=== PATIENT | female | born 1995 | race Caucasian/White ===

== ENCOUNTER 2020-08-26 06:43 | Emergency (ER) | payer SELFPAY ==
--- NOTE | 2020-08-26 06:58 | EDM.PDOC ---
ED HPI GENERAL MEDICAL PROBLEM - General Chief Complaint: Flank Pain Stated Complaint: KIDNEY PAIN Time Seen by Provider: 08/26/20 06:55 Source of Information: Reports: Patient History Limitations: Reports: No Limitations - History of Present Illness INITIAL COMMENTS - FREE TEXT/NARRATIVE: 25-year-old female past medical history kidney stones, UTIs presents for "kidney pain". She states that she had bilateral lower quadrant abdominal pain with a little bit of radiation to her back the last several days. She denies any burning sensation with urination, hematuria, vaginal discharge or bleeding. No history of abdominal surgeries and denies possibility of . bilateral flank pain Pain Score (Numeric/FACES): 8 - Related Data Allergies Allergy/AdvReac Type Severity Reaction Status Date / Time tramadol Allergy Anaphylactic Verified 08/26/20 07:07 Shock Home Meds: Home Meds Ibuprofen [Motrin] 600 mg PO Q6H PRN #20 tab 08/26/20 [Rx] oxyCODONE HCl/Acetaminophen [Percocet 5-325 mg Tablet] 1 each PO Q4H PRN #12 tablet 08/26/20 [Rx] ED ROS GENERAL - Review of Systems Review Of Systems: Comprehensive ROS is negative, except as noted in HPI. ED EXAM, GENERAL - Physical Exam Exam: See Below Exam Limited By: No Limitations General Appearance: Alert, WD/WN, No Apparent Distress Throat/Mouth: Normal Voice, No Airway Compromise Head: Atraumatic, Normocephalic Respiratory/Chest: No Respiratory Distress, Lungs Clear, Normal Breath Sounds, No Accessory Muscle Use Cardiovascular: Normal Peripheral Pulses GI/Abdominal: Soft, Other (TTP with voluntary guarding b/l lower abdomen R>L) Extremities: Normal Inspection Neurological: Alert Psychiatric: Normal Affect, Normal Mood Skin Exam: Warm, Dry, Intact, Normal Color Course - Vital Signs Last Recorded V/S: Last Vital Signs Temp 98.1 F 08/26/20 07:08 Pulse 62 08/26/20 09:09 Resp 18 08/26/20 09:09 BP 104/65 08/26/20 09:09 Pulse Ox 100 08/26/20 09:09 - Orders/Labs/Meds Orders: Active Orders 24 hr Category Date Time Status Sodium Chloride 0.9% [Saline Flush] Med 08/26/20 07:07 Active 10 ml FLUSH ASDIRECTED PRN Sodium Chloride 0.9% [Saline Flush] Med 08/26/20 07:07 Active 2.5 ml FLUSH ASDIRECTED PRN Saline Lock Insert [OM.PC] Stat Oth 08/26/20 07:07 Ordered Medication Orders Sodium Chloride (Saline Flush) 10 ml FLUSH ASDIRECTED PRN PRN Reason: Keep Vein Open Last Admin: 08/26/20 07:29 Dose: 10 ml Documented by: ROBBY Sodium Chloride (Saline Flush) 2.5 ml FLUSH ASDIRECTED PRN PRN Reason: Keep Vein Open Last Admin: 08/26/20 07:28 Dose: 2.5 ml Documented by: ROBBY Labs: Laboratory Tests 08/26/20 08/26/20 08/26/20 Range/Units 07:13 07:13 07:26 WBC 8.20 (4.0-11.0) K/uL RBC 4.55 (4.30-5.90) M/uL Hgb 14.2 (12.0-16.0) g/dL Hct 43.5 (36.0-46.0) % MCV 95.6 (80.0-98.0) fL MCH 31.2 (27.0-32.0) pg MCHC 32.6 (31.0-37.0) g/dL RDW Std Deviation 43.2 (28.0-62.0) fl RDW Coeff of Van 12 (11.0-15.0) % Plt Count 267 (150-400) K/uL MPV 10.60 (7.40-12.00) fL Neut % (Auto) 65.9 (48.0-80.0) % Lymph % (Auto) 21.6 (16.0-40.0) % Prentiss % (Auto) 10.4 (0.0-15.0) % Eos % (Auto) 2.0 (0.0-7.0) % Baso % (Auto) 0.1 (0.0-1.5) % Neut # (Auto) 5.4 (1.4-5.7) K/uL Lymph # (Auto) 1.8 (0.6-2.4) K/uL Prentiss # (Auto) 0.9 H (0.0-0.8) K/uL Eos # (Auto) 0.2 (0.0-0.7) K/uL Baso # (Auto) 0.0 (0.0-0.1) K/uL Nucleated RBC % 0.0 /100WBC Nucleated RBCs # 0 K/uL Sodium (136-145) mmol/L Potassium (3.5-5.1) mmol/L Chloride (98-107) mmol/L Carbon Dioxide (21.0-32.0) mmol/L BUN (7.0-18.0) mg/dL Creatinine (0.6-1.0) mg/dL Est Cr Clr Drug Dosing mL/min Estimated GFR (MDRD) ml/min Glucose (74-106) mg/dL Calcium (8.5-10.1) mg/dL Total Bilirubin (0.2-1.0) mg/dL AST (15-37) IU/L ALT (14-63) IU/L Alkaline Phosphatase (46-116) U/L Total Protein (6.4-8.2) g/dL Albumin (3.4-5.0) g/dL Globulin (2.6-4.0) g/dL Albumin/Globulin Ratio (0.9-1.6) Urine Color YELLOW Urine Appearance CLOUDY Urine pH 6.0 (5.0-8.0) Ur Specific [employer] >= 1.030 (1.001-1.035) Urine Protein NEGATIVE (NEGATIVE) mg/dL Urine Glucose (UA) NEGATIVE (NEGATIVE) mg/dL Urine Ketones NEGATIVE (NEGATIVE) mg/dL Urine Occult Blood NEGATIVE (NEGATIVE) Urine Nitrite NEGATIVE (NEGATIVE) Urine Bilirubin NEGATIVE (NEGATIVE) Urine Urobilinogen 0.2 (<2.0) EU/dL Ur Leukocyte Esterase NEGATIVE (NEGATIVE) Urine HCG, Qual NEGATIVE (NEGATIVE) 08/26/20 Range/Units 07:26 WBC (4.0-11.0) K/uL RBC (4.30-5.90) M/uL Hgb (12.0-16.0) g/dL Hct (36.0-46.0) % MCV (80.0-98.0) fL MCH (27.0-32.0) pg MCHC (31.0-37.0) g/dL RDW Std Deviation (28.0-62.0) fl RDW Coeff of Van (11.0-15.0) % Plt Count (150-400) K/uL MPV (7.40-12.00) fL Neut % (Auto) (48.0-80.0) % Lymph % (Auto) (16.0-40.0) % Prentiss % (Auto) (0.0-15.0) % Eos % (Auto) (0.0-7.0) % Baso % (Auto) (0.0-1.5) % Neut # (Auto) (1.4-5.7) K/uL Lymph # (Auto) (0.6-2.4) K/uL Prentiss # (Auto) (0.0-0.8) K/uL Eos # (Auto) (0.0-0.7) K/uL Baso # (Auto) (0.0-0.1) K/uL Nucleated RBC % /100WBC Nucleated RBCs # K/uL Sodium 141 (136-145) mmol/L Potassium 3.6 (3.5-5.1) mmol/L Chloride 106 (98-107) mmol/L Carbon Dioxide 24.9 (21.0-32.0) mmol/L BUN 8 (7.0-18.0) mg/dL Creatinine 0.8 (0.6-1.0) mg/dL Est Cr Clr Drug Dosing 109.38 mL/min Estimated GFR (MDRD) > 60.0 ml/min Glucose 88 (74-106) mg/dL Calcium 8.8 (8.5-10.1) mg/dL Total Bilirubin 0.3 (0.2-1.0) mg/dL AST 8 L (15-37) IU/L ALT 14 (14-63) IU/L Alkaline Phosphatase 42 L (46-116) U/L Total Protein 7.4 (6.4-8.2) g/dL Albumin 4.2 (3.4-5.0) g/dL Globulin 3.2 (2.6-4.0) g/dL Albumin/Globulin Ratio 1.3 (0.9-1.6) Urine Color Urine Appearance Urine pH (5.0-8.0) Ur Specific [employer] (1.001-1.035) Urine Protein (NEGATIVE) mg/dL Urine Glucose (UA) (NEGATIVE) mg/dL Urine Ketones (NEGATIVE) mg/dL Urine Occult Blood (NEGATIVE) Urine Nitrite (NEGATIVE) Urine Bilirubin (NEGATIVE) Urine Urobilinogen (<2.0) EU/dL Ur Leukocyte Esterase (NEGATIVE) Urine HCG, Qual (NEGATIVE) Meds: Medications Generic Name Dose Route Start Last Admin Trade Name Shakira PRN Reason Stop Dose Admin Sodium Chloride 10 ml 08/26/20 07:07 08/26/20 07:29 Saline Flush FLUSH 10 ml ASDIRECTED PRN Administration Keep Vein Open Sodium Chloride 2.5 ml 08/26/20 07:07 08/26/20 07:28 Saline Flush FLUSH 2.5 ml ASDIRECTED PRN Administration Keep Vein Open Discontinued Medications Generic Name Dose Route Start Last Admin Trade Name Freq PRN Reason Stop Dose Admin Iopamidol 100 ml 08/26/20 08:33 08/26/20 09:25 Isovue Multipack-370 (76%) IVPUSH 08/26/20 08:34 100 ml ONETIME STA Administration Morphine Sulfate 4 mg 08/26/20 07:07 08/26/20 07:29 Morphine IVPUSH 08/26/20 07:08 4 mg ONETIME ONE Administration Morphine Sulfate 4 mg 08/26/20 09:37 08/26/20 09:41 Morphine IVPUSH 08/26/20 09:38 4 mg ONETIME ONE Administration Ondansetron HCl 4 mg 08/26/20 07:07 08/26/20 07:29 Zofran IVPUSH 08/26/20 07:08 4 mg ONETIME ONE Administration - Re-Assessments/Exams Free Text/Narrative Re-Assessment/Exam: 08/26/20 07:16 Will get basic labs, UA, Upreg, and CT A/P to r/o appendicitis vs UTI vs pyelo vs renal stone 08/26/20 09:27 Large ovarian cyst on CT imaging. Will get ultrasound to further characterize. Spoke with patient about results and discussed importance of establishing care with a electron beam welding machine operator. 08/26/20 11:08 Ultrasound does not reveal evidence of ovarian torsion. Will discharge with analgesia and recommendations to follow-up with electron beam welding machine operator. Return precautions were discussed at length. Departure - Departure Time of Disposition: 11:08 Disposition: Home, Self-Care 01 Condition: Good Clinical Impression: Ovarian cyst Qualifiers: Laterality: right Qualified Code(s): N83.201 - Unspecified ovarian cyst, right side - Discharge Information Prescriptions: Ibuprofen [Motrin] 600 mg PO Q6H PRN #20 tab PRN Reason: Pain oxyCODONE HCl/Acetaminophen [Percocet 5-325 mg Tablet] 1 each PO Q4H PRN #12 tablet PRN Reason: Pain Instructions: Ovarian Cyst, [id number] Referrals: PCP,None [Primary Care Provider] - Forms: ED Department Discharge Additional Instructions: Your imaging was remarkable for a large ovarian cyst. There is no evidence of infection. You were getting good blood flow to your ovary. Often these cysts resolve on their own, but you should follow-up with an [employer]. The radiologist reading your imaging recommends a repeat ultrasound in 6 to 8 weeks. This can be ordered by your SLURRY MIXER. Information for [employer] is provided below. If you are feeling like you are going to pass out or if the pain suddenly changes, you are encouraged to return to the emergency department for reassessment. [facility]: [facility] [address] [place] [id number] [facility] [address] [place] [id number] The following information is given to patients seen in the emergency department who are being discharged to home. This information is to outline your options for follow-up care. We provide all patients seen in our emergency department with a follow-up referral. The need for follow-up, as well as the timing and circumstances, are variable depending upon the specifics of your emergency department visit. If you don't have a primary care physician on staff, we will provide you with a referral. We always advise you to contact your personal physician following an emergency department visit to inform them of the circumstance of the visit and for follow-up with them and/or the need for any referrals to a consulting specialist. The emergency department will also refer you to a specialist when appropriate. This referral assures that you have the opportunity for follow-up care with a specialist. All of these measure are taken in an effort to provide you with optimal care, which includes your follow-up. Under all circumstances we always encourage you to contact your private physician who remains a resource for coordinating your care. When calling for follow-up care, please make the office aware that this follow-up is from your recent emergency room visit. If for any reason you are refused follow-up, please contact the [facility] Emergency Department at and asked to speak to the emergency department charge nurse. Please follow up with your primary care physician. If you do not have a primary care physician, see below: [facility] [address], [place] [id number] My [facility] [address] [place], [place] [id number] [facility] [address] [place] [address] Sepsis Event Note (ED) - Focused Exam Vital Signs: Vital Signs Temp Pulse Resp BP Pulse Ox 08/26/20 09:09 62 18 104/65 100 08/26/20 08:09 65 18 110/60 100 08/26/20 07:08 98.1 F 92 18 123/63 98 - My Orders Last 24 Hours: My Active Orders 08/26/20 07:07 Sodium Chloride 0.9% [Saline Flush] 10 ml FLUSH ASDIRECTED PRN Sodium Chloride 0.9% [Saline Flush] 2.5 ml FLUSH ASDIRECTED PRN Saline Lock Insert [OM.PC] Stat - Assessment/Plan Last 24 Hours: My Active Orders 08/26/20 07:07 Sodium Chloride 0.9% [Saline Flush] 10 ml FLUSH ASDIRECTED PRN Sodium Chloride 0.9% [Saline Flush] 2.5 ml FLUSH ASDIRECTED PRN Saline Lock Insert [OM.PC] Stat
[2020-08-26] MEDS ORDERED: Sodium Chloride 0.9% 2.5 ML Syringe FLUSH PRN (07:07)
[2020-08-26] MEDS ORDERED: Ondansetron 4 MG/2 ML SDV IVPUSH ONE (07:07)
[2020-08-26] MEDS ORDERED: Sodium Chloride 0.9% 10 ML Syringe FLUSH PRN (07:07)
[2020-08-26] MEDS ORDERED: Morphine 4 MG/ML Syringe IVPUSH ONE ×2 (07:07→09:37)
[2020-08-26 08:18] LABS: BLOOD UREA NITROGEN,BUN 8 mg/dL (7.0-18.0); CARBON DIOXIDE,CO2 24.9 mmol/L (21.0-32.0); CHLORIDE,CL 106 mmol/L (98-107); GLUCOSE RANDOM 88 mg/dL (74-106); POTASSIUM,K 3.6 mmol/L (3.5-5.1); SODIUM,NA 141 mmol/L (136-145)
[2020-08-26] MEDS ORDERED: Iopamidol 755 MG/ML 500 ML Multipack Bottle IVPUSH STA (08:33)
--- NOTE | 2020-08-26 09:20 | CT ---
HISTORY: Lower abdominal pain. TECHNIQUE: Intravenous contrast enhanced CT of the abdomen and pelvis. 100 mL of Isovue-370 intravenous contrast administered. COMPARISON: No prior. FINDINGS: There is no focal liver parenchymal abnormality. No biliary ductal dilatation. Gallbladder does not appear overly distended. Spleen size within normal limits. Adrenal glands are normal. No focal pancreatic abnormality. Symmetric nephrograms. No renal mass or hydronephrosis. No obstructive urinary calculus. Urinary bladder does not appear overly distended. - No small bowel obstruction. No appendicitis. No diverticulitis. - There is an approximately 4.3 cm cystic right adnexal structure which may reflect a ovarian cyst. This is seen on image #130 of series 201. Right ovary would be more optimally evaluated with ultrasound. The left ovary appears grossly unremarkable. Mildly prominent periuterine vasculature. - No abdominal aortic aneurysm. Small retroperitoneal lymph nodes are not technically enlarged by imaging criteria. - No consolidation within the lung bases nor pleural effusion. - No acute bony abnormality. IMPRESSION: 1. 4.3 cm right adnexal cystic structure which could reflect an ovarian cyst. The right ovary would more optimally evaluated with ultrasound. 2. No appendicitis. 3. No hydronephrosis or obstructive calculus. Please note that all CT scans at this facility use dose modulation, iterative reconstruction, and/or weight-based dosing when appropriate to reduce radiation dose to as low as reasonably achievable. Dictated by Mt Martinez MD @ Aug 26 2020 9:14AM Signed by Dr. Mt Martinez @ Aug 26 2020 9:20AM
--- NOTE | 2020-08-26 10:50 | US ---
HISTORY: Right ovarian cyst seen on recent CT. TECHNIQUE: Transvaginal pelvic ultrasound. COMPARISON: CT 08/26/2020. FINDINGS: Uterus measures 7.4 x 6.2 x 4.1 cm in size. Endometrial stripe thickness is 10 mm which is within normal limits. No uterine mass. - Right ovary is enlarged measuring 6.3 x 6.4 x 4.3 cm in size. There is a complex cystic lesion within the right ovary which measures approximately 4.6 x 3.8 x 4.6 cm in size. This may reflect a hemorrhagic cyst. Blood flow is detected within the right ovary without findings of torsion. - Left ovary measures 3 x 1.8 x 3.3 cm in size. There are small follicles within the left ovary. Blood flow is detected within left ovary without findings of torsion. IMPRESSION: Complex 4.6 cm lesion within the right ovary which may reflect a hemorrhagic cyst. Blood flow is detected within the right ovary without findings of torsion. Consider a follow-up pelvic ultrasound in 6-8 weeks or 1-2 menstrual cycles to confirm appropriate resolution of this finding. Dictated by Mt Martinez MD @ Aug 26 2020 10:49AM Signed by Dr. Mt Martinez @ Aug 26 2020 10:49AM
== END 2020-08-26 11:40 | disposition home or self-care (01) ==
LOC: MW.ED 06:43
DX: N83.201 Unspecified ovarian cyst, right side (principal); Z88.5 Allergy status to narcotic agent
CPT/HCPCS: 36415; 74177; 76856; 80053; 81003; 81025; 85025; 96374; 96375; 96376; 99284; J2270; J2405; Q9967

== ENCOUNTER 2020-11-17 09:15 | Emergency (ER) | payer SELFPAY ==
[2020-11-17] MEDS ORDERED: Sodium Chloride 0.9% 2.5 ML Syringe FLUSH PRN (09:41)
[2020-11-17] MEDS ORDERED: Sodium Chloride 0.9% 10 ML Syringe FLUSH PRN (09:41)
[2020-11-17] MEDS ORDERED: Morphine 4 MG/ML Syringe IVPUSH ONE (09:43)
[2020-11-17] MEDS ORDERED: Ondansetron 4 MG/2 ML SDV IVPUSH ONE (09:43)
--- NOTE | 2020-11-17 09:45 | EDM.PDOC ---
ED HPI GENERAL MEDICAL PROBLEM - General Chief Complaint: Genitourinary Problem Stated Complaint: ABDOMINAL PAIN Time Seen by Provider: 11/17/20 09:22 - History of Present Illness INITIAL COMMENTS - FREE TEXT/NARRATIVE: 25-year-old female with minimal past history presenting with inferior right lower quadrant abdominal pain sharp and achy currently 8 out of 10 started last night. Some significant nausea associated with but no vomiting no fever no vaginal bleeding or discharge. Patient's last menstrual cycle was November 11 it was especially painful but otherwise normal. Patient was seen here in August for similar symptoms diagnosed with a large right-sided ovarian cyst at that time has not been able to follow-up with gynecology as yet. No exacerbating or alleviating factors the pain does not radiate no associated symptoms. Right Lower Abdomen Pain Score (Numeric/FACES): 8 - Related Data Allergies Allergy/AdvReac Type Severity Reaction Status Date / Time tramadol Allergy Anaphylactic Verified 11/17/20 09:29 Shock Home Meds: Home Meds . [No Known Home Meds] 11/17/20 [History] Past Medical History - Past Health History Medical/Surgical History: Denies Medical/Surgical History Genitourinary History: Reports: UTI, Recurrent Other Genitourinary History: ovarian cyst - Infectious Disease History Infectious Disease History: Reports: Chicken Pox - Past Surgical History HEENT Surgical History: Reports: Tonsillectomy Social & Family History - Family History Family Medical History: No Pertinent Family History - Tobacco Use Tobacco Use Status *Q: Never Tobacco User - Caffeine Use Caffeine Use: Reports: None - Recreational Drug Use Recreational Drug Use: No ED ROS GENERAL - Review of Systems Review Of Systems: See Below Free Text/Narrative/Comment: General: No fever. Skin: No rash. Eyes: No vision problems. ENT: No sore throat. Neck: No neck stiffness. Respiratory: No shortness of breath. Cardiac: No chest pain. Gastrointestinal: Per HPI Urinary: No dysuria. Musculoskeletal: No myalgias/arthralgias. Neurologic: No headache. ED EXAM, GENERAL - Physical Exam Exam: See Below Free Text/Narrative:: General Appearance: No acute distress, appears comfortable Skin: No rash HEENT: Normocephalic/atraumatic, sclera anicteric, mucous membranes moist Neck: Normal range of motion Chest and Lungs: Bilateral breath sounds, clear to auscultation Cardiovascular: Regular rate and rhythm, no murmur Abdomen: Soft, minimal right lower quadrant tenderness no guarding or rebound Back: Normal Musculoskeletal: No edema or tenderness Neurologic: Awake, alert, no obvious deficits, moving all extremities Psychiatric: Appropriate, cooperative Course - Vital Signs Last Recorded V/S: Last Vital Signs Temp 96.3 F L 11/17/20 09:29 Pulse 60 11/17/20 12:41 Resp 16 11/17/20 12:41 BP 97/60 11/17/20 12:41 Pulse Ox 97 11/17/20 12:41 - Orders/Labs/Meds Orders: Active Orders 24 hr Category Date Time Status Sodium Chloride 0.9% [Saline Flush] Med 11/17/20 09:41 Active 10 ml FLUSH ASDIRECTED PRN Sodium Chloride 0.9% [Saline Flush] Med 11/17/20 09:41 Active 2.5 ml FLUSH ASDIRECTED PRN Saline Lock Insert [OM.PC] Stat Oth 11/17/20 09:42 Ordered Medication Orders Sodium Chloride (Sodium Chloride 0.9% 10 Ml Syringe) 10 ml FLUSH ASDIRECTED PRN PRN Reason: Keep Vein Open Last Admin: 11/17/20 09:50 Dose: 10 ml Documented by: MAIDA Sodium Chloride (Sodium Chloride 0.9% 2.5 Ml Syringe) 2.5 ml FLUSH ASDIRECTED PRN PRN Reason: Keep Vein Open Last Admin: 11/17/20 09:50 Dose: 2.5 ml Documented by: MAIDA Labs: Laboratory Tests 11/17/20 11/17/20 11/17/20 Range/Units 09:27 09:48 09:48 WBC 4.96 (4.0-11.0) K/uL RBC 4.18 L (4.30-5.90) M/uL Hgb 13.5 (12.0-16.0) g/dL Hct 40.4 (36.0-46.0) % MCV 96.7 (80.0-98.0) fL MCH 32.3 H (27.0-32.0) pg MCHC 33.4 (31.0-37.0) g/dL RDW Std Deviation 44.0 (28.0-62.0) fl RDW Coeff of Van 13 (11.0-15.0) % Plt Count 269 (150-400) K/uL MPV 10.20 (7.40-12.00) fL Neut % (Auto) 50.2 (48.0-80.0) % Lymph % (Auto) 34.1 (16.0-40.0) % [place] % (Auto) 13.7 (0.0-15.0) % Eos % (Auto) 1.8 (0.0-7.0) % Baso % (Auto) 0.2 (0.0-1.5) % Neut # (Auto) 2.5 (1.4-5.7) K/uL Lymph # (Auto) 1.7 (0.6-2.4) K/uL [place] # (Auto) 0.7 (0.0-0.8) K/uL Eos # (Auto) 0.1 (0.0-0.7) K/uL Baso # (Auto) 0.0 (0.0-0.1) K/uL Nucleated RBC % 0.0 /100WBC Nucleated RBCs # 0 K/uL Sodium 141 (136-145) mmol/L Potassium 3.9 (3.5-5.1) mmol/L Chloride 103 (98-107) mmol/L Carbon Dioxide 26.0 (21.0-32.0) mmol/L BUN 8 (7.0-18.0) mg/dL Creatinine 0.7 (0.6-1.0) mg/dL Est Cr Clr Drug Dosing 120.51 mL/min Estimated GFR (MDRD) > 60.0 ml/min Glucose 86 (74-106) mg/dL Calcium 8.2 L (8.5-10.1) mg/dL Total Bilirubin 0.4 (0.2-1.0) mg/dL AST 12 L (15-37) IU/L ALT 16 (14-63) IU/L Alkaline Phosphatase 71 (46-116) U/L Total Protein 7.1 (6.4-8.2) g/dL Albumin 3.9 (3.4-5.0) g/dL Globulin 3.2 (2.6-4.0) g/dL Albumin/Globulin Ratio 1.2 (0.9-1.6) Urine HCG, Qual NEGATIVE (NEGATIVE) Meds: Medications Generic Name Dose Route Start Last Admin Trade Name Freq PRN Reason Stop Dose Admin Sodium Chloride 10 ml 11/17/20 09:41 11/17/20 09:50 Sodium Chloride 0.9% 10 Ml Syringe FLUSH 10 ml ASDIRECTED PRN Administration Keep Vein Open Sodium Chloride 2.5 ml 11/17/20 09:41 11/17/20 09:50 Sodium Chloride 0.9% 2.5 Ml Syringe FLUSH 2.5 ml ASDIRECTED PRN Administration Keep Vein Open Discontinued Medications Generic Name Dose Route Start Last Admin Trade Name Rubinq PRN Reason Stop Dose Admin Morphine Sulfate 4 mg 11/17/20 09:43 11/17/20 09:50 Morphine 4 Mg/Ml Syringe IVPUSH 11/17/20 09:44 4 mg ONETIME ONE Administration Morphine Sulfate 2 mg 11/17/20 12:28 11/17/20 12:40 Morphine 2 Mg/Ml Syringe IVPUSH 11/17/20 12:29 2 mg ONETIME ONE Administration Ondansetron HCl 4 mg 11/17/20 09:43 11/17/20 09:50 Ondansetron 4 Mg/2 Ml Sdv IVPUSH 11/17/20 09:44 4 mg ONETIME ONE Administration Departure - Departure Time of Disposition: 13:25 Disposition: Home, Self-Care 01 Condition: Good Clinical Impression: Constipation - Discharge Information *PRESCRIPTION DRUG MONITORING PROGRAM REVIEWED*: Not Applicable *COPY OF PRESCRIPTION DRUG MONITORING REPORT IN PATIENT SRAVAN: Not Applicable Instructions: Constipation, Adult Forms: ED Department Discharge Additional Instructions: I recommend that you try MiraLAX or its generic equivalent to help with your constipation. Please start with 1 capful once a day as directed on the bottle. You can increase this by one half capful each day until you have a bowel movement. If you develop mild to moderate pain I encourage you to take ibuprofen or Advil you can take Tylenol as well. If you develop severe pain fever or vomiting please return to the ER. Please follow-up with your primary care doctor. If you do not have a primary care doctor you can be seen one of the primary care clinics listed below. [facility] - Primary Care [address] [place] [address] [id number] [address] [place] [address] The following information is given to patients seen in the emergency department who are being discharged to home. This information is to outline your options for follow-up care. We provide all patients seen in our emergency department with a follow-up referral. The need for follow-up, as well as the timing and circumstances, are variable depending upon the specifics of your emergency department visit. If you don't have a primary care physician on staff, we will provide you with a referral. We always advise you to contact your personal physician following an emergency department visit to inform them of the circumstance of the visit and for follow-up with them and/or the need for any referrals to a consulting specialist. The emergency department will also refer you to a specialist when appropriate. This referral assures that you have the opportunity for follow-up care with a specialist. All of these measure are taken in an effort to provide you with optimal care, which includes your follow-up. Under all circumstances we always encourage you to contact your private physician who remains a resource for coordinating your care. When calling for follow-up care, please make the office aware that this follow-up is from your recent emergency room visit. If for any reason you are refused follow-up, please contact the [facility] Emergency Department at and asked to speak to the emergency department charge nurse. Sepsis Event Note (ED) - Evaluation Sepsis Screening Result: No Definite Risk - Focused Exam Vital Signs: Vital Signs Temp Pulse Resp BP Pulse Ox 11/17/20 12:41 60 16 97/60 97 11/17/20 10:21 65 14 106/61 97 11/17/20 09:29 96.3 F L 95 18 108/58 L 97 - My Orders Last 24 Hours: My Active Orders 11/17/20 09:41 Sodium Chloride 0.9% [Saline Flush] 10 ml FLUSH ASDIRECTED PRN Sodium Chloride 0.9% [Saline Flush] 2.5 ml FLUSH ASDIRECTED PRN 11/17/20 09:42 Saline Lock Insert [OM.PC] Stat - Assessment/Plan Last 24 Hours: My Active Orders 11/17/20 09:41 Sodium Chloride 0.9% [Saline Flush] 10 ml FLUSH ASDIRECTED PRN Sodium Chloride 0.9% [Saline Flush] 2.5 ml FLUSH ASDIRECTED PRN 11/17/20 09:42 Saline Lock Insert [OM.PC] Stat Assessment:: 25-year-old female presenting with signs and symptoms that are most consistent with ovarian cyst related pain. Torsion must be excluded and pelvic ultrasound ordered. Appendicitis considered I think it is much less likely but if pelvic ultrasound were normal white blood cell count was elevated could consider CT scan at that time. No dysuria hematuria to suggest UTI. Given potential for emergent surgery if torsion is confirmed please Zofran and morphine for symptom control for now. 1150: Patient's pain was initially controlled with the morphine but on reassessment at this time it is returning. Patient's labs and ultrasound are unremarkable. However, on reassessment patient continues to have significant tenderness in McBurney's point and given this we will proceed with contrast- enhanced CT to exclude acute appendicitis. If this is normal I think her symptoms are likely functional related to constipation and lack of a bowel movement in 2 days patient would likely be safe for discharge with a bowel regimen. Pt will remain NPO for now. 1325: Patient symptoms currently [address] is normal. Patient likely has symptoms related to her constipation. We discussed MiraLAX use return precaution discussed and understood patient will follow up with a primary care doctor.
[2020-11-17 10:18] LABS: BLOOD UREA NITROGEN,BUN 8 mg/dL (7.0-18.0); CHLORIDE,CL 103 mmol/L (98-107); GLUCOSE RANDOM 86 mg/dL (74-106); POTASSIUM,K 3.9 mmol/L (3.5-5.1); SODIUM,NA 141 mmol/L (136-145)
--- NOTE | 2020-11-17 11:33 | US ---
INDICATION: Right lower quadrant pain x2 days TECHNIQUE: Ultrasound pelvis transvaginal COMPARISON: 08/26/2020 FINDINGS: Uterus: 6.7 centimeter x 4.7 centimeter x 3.6 centimeter. The uterus is retroflexed. Normal echotexture of the myometrium. No masses. Endometrium: The endometrium measures 4 mm in thickness. No sign of endometrial mass or fluid. Right ovary: 1.8 centimeters x 4.2 centimeter x 2.1 centimeter no ovarian or adnexal masses. Multiple small follicles normal arterial and venous blood flow. Left ovary: 3.7 centimeter x 3.6 centimeter x 2.0 centimeter. No ovarian or adnexal masses. Normal arterial and venous blood flow. Cul-de-sac: No significant free fluid. IMPRESSION: Multiple small right ovarian follicles otherwise unremarkable pelvic ultrasound. Dictated by Hari Kemp MD @ Nov 17 2020 11:31AM Signed by Dr. Hari Kemp @ Nov 17 2020 11:31AM
[2020-11-17] MEDS ORDERED: Morphine 2 MG/ML SYRINGE IVPUSH ONE (12:28)
--- NOTE | 2020-11-17 13:10 | CT ---
INDICATION: Right lower quadrant pain. TECHNIQUE: CT of the abdomen and pelvis with 100 cc Isovue 370 IV contrast. Coronal and sagittal reconstructions. COMPARISON: CT of the abdomen pelvis 08/26/2020. Pelvic ultrasound 08/26/2020 and 11/17/2020. FINDINGS: The liver, gallbladder, spleen, pancreas, and adrenal glands are negative. Splenule. Hepatic and portal veins are patent. Symmetric enhancement of the kidneys. No hydronephrosis. No obstructing urinary calculi. The bladder is normal in appearance. Retroverted uterus. Resolution of the previously seen right adnexal cystic lesion. This was most likely physiologic. There are small follicles in both ovaries. No bowel dilation. Negative appendix. No intraperitoneal free air or fluid. No lymphadenopathy. The bones are unremarkable. Subcutaneous fat stranding within the left lateral hip could represent a soft tissue contusion. The lung bases are clear. IMPRESSION: 1. No acute findings in the abdomen or pelvis. 2. Resolution of the previously seen right adnexal cystic lesion. This was most likely physiologic. 3. Subcutaneous fat stranding within the left lateral hip could represent a soft tissue contusion. Correlate with physical exam. Please note that all CT scans at this facility use dose modulation, iterative reconstruction, and/or weight-based dosing when appropriate to reduce radiation dose to as low as reasonably achievable. Dictated by Maddy Bauer MD @ Nov 17 2020 12:59PM Signed by Dr. Maddy Bauer @ Nov 17 2020 1:08PM
[2020-11-17] MEDS ORDERED: Iopamidol 755 MG/ML 500 ML Multipack Bottle IVPUSH STA (18:34)
== END 2020-11-17 13:49 | disposition home or self-care (01) ==
LOC: MW.ED 09:15
DX: K59.00 Constipation, unspecified (principal); Z88.5 Allergy status to narcotic agent
CPT/HCPCS: 36415; 74177; 76856; 80053; 81025; 85025; 96374; 96375; 96376; 99284; J2270; J2405; Q9967; 99283

== ENCOUNTER 2020-11-20 21:05 | Emergency (ER) | payer SELFPAY ==
--- NOTE | 2020-11-20 22:49 | EDM.PDOC ---
ED HPI GENERAL MEDICAL PROBLEM - General Chief Complaint: Lower Extremity Injury/Pain Stated Complaint: LT KNEE INJURY Time Seen by Provider: 11/20/20 22:42 - History of Present Illness INITIAL COMMENTS - FREE TEXT/NARRATIVE: History of present illness: [] She was playing soccer at 8:30 PM when she heard a pop in the left side of her knee and it bent into hyperflexion. Afterwards she is unable to walk on it without severe discomfort. She has not born weight. Patient has pain in the lateral knee joint. She has pain that runs from the left knee up to the mid lateral thigh. Review of systems: As per history of present illness and below otherwise all systems reviewed and negative. Past medical history: As per history of present illness and as reviewed below otherwise noncontributory. Surgical history: As per history of present illness and as reviewed below otherwise noncontributory. Social history: No reported history of drug or alcohol abuse. Family history: As per history of present illness and as reviewed below otherwise noncontributory. Physical exam: Constitutional - well developed, well-nourished and in no acute distress HEENT - normocephalic, no evidence of trauma - external nose and mouth normal - no mass in neck and no JVD - mucosae moist EYES - full EOM, PERRL, no icterus - no evidence of inflammation, injection, or drainage Respiratory - no respiratory distress, equal bilateral expansion Musculoskeletal tenderness in the lateral meniscal area and behind the left lateral edge of the patella on the left lower extremity. The muscle itself is not tender. The hip is nontender. Distal neurovascular intact. No gross deformity of long bones or joints - no tenderness, swelling or edema Neurologic - Alert and oriented times four - CN II-XII grossly intact - motor sensory and coordination symmetrically normal Psychiatric - appropriate mood and affect with normal thought content Hematologic - No petechiae or purpura - mucosa appropriate color and sclera not pale - normal nail bed color and refill Integument - no rash or evidence of trauma - normal turgor Diagnostics: [] Therapeutics: [] Impression: [] Plan: [] Definitive disposition and diagnosis as appropriate pending reevaluation and review of above. Left Knee Pain Score (Numeric/FACES): 8 - Related Data Allergies Allergy/AdvReac Type Severity Reaction Status Date / Time tramadol Allergy Anaphylactic Verified 11/20/20 22:41 Shock Home Meds: Home Meds . [No Known Home Meds] 11/17/20 [History] Past Medical History - Past Health History Medical/Surgical History: Denies Medical/Surgical History Genitourinary History: Reports: UTI, Recurrent Other Genitourinary History: ovarian cyst - Infectious Disease History Infectious Disease History: Reports: Chicken Pox - Past Surgical History HEENT Surgical History: Reports: Tonsillectomy Social & Family History - Family History Family Medical History: No Pertinent Family History - Caffeine Use Caffeine Use: Reports: None Review of Systems - Review of Systems Review Of Systems: Comprehensive ROS is negative, except as noted in HPI. ED EXAM, GENERAL - Physical Exam Exam: See Below Free Text/Narrative:: My physical exam is in the HPI Course - Vital Signs Text/Narrative:: X-ray appears normal to me and to the radiologist. Impression is she has a meniscal injury which may or may not be significant enough to require orthopedic follow-up. Plan immobilization with an immobilizer to give her time to rest the knee ligaments and then reevaluation in 2 days or more Last Recorded V/S: Last Vital Signs Temp 36.4 C 11/20/20 22:42 Pulse 98 11/20/20 22:42 Resp 18 11/20/20 22:42 BP 115/69 11/20/20 22:42 Pulse Ox 98 11/20/20 22:42 - Orders/Labs/Meds Orders: Active Orders 24 hr Category Date Time Status DME for Discharge [COMM] Stat Oth 11/20/20 23:51 Ordered Meds: Medications Discontinued Medications Generic Name Dose Route Start Last Admin Trade Name Shakira PRN Reason Stop Dose Admin Ketorolac Tromethamine 30 mg 11/20/20 23:37 Ketorolac 30 Mg/Ml Sdv IM 11/20/20 23:38 ONETIME ONE Departure - Departure Time of Disposition: 23:51 Disposition: Home, Self-Care 01 Condition: Good Clinical Impression: Internal derangement of left knee - Discharge Information Instructions: Knee Sprain, Adult, [id number] Referrals: PCP,None [Primary Care Provider] - Forms: ED Department Discharge Additional Instructions: [facility] - Orthopedic Clinic Professional Building [address] [place] [address], [address] [place] [address] The following information is given to patients seen in the emergency department who are being discharged to home. This information is to outline your options for follow-up care. We provide all patients seen in our emergency department with a follow-up referral. The need for follow-up, as well as the timing and circumstances, are variable depending upon the specifics of your emergency department visit. If you don't have a primary care physician on staff, we will provide you with a referral. We always advise you to contact your personal physician following an emergency department visit to inform them of the circumstance of the visit and for follow-up with them and/or the need for any referrals to a consulting specialist. The emergency department will also refer you to a specialist when appropriate. This referral assures that you have the opportunity for follow-up care with a specialist. All of these measure are taken in an effort to provide you with optimal care, which includes your follow-up. Under all circumstances we always encourage you to contact your private physician who remains a resource for coordinating your care. When calling for follow-up care, please make the office aware that this follow-up is from your recent emergency room visit. If for any reason you are refused follow-up, please contact the [facility] Emergency Department at and asked to speak to the emergency department charge nurse. Sepsis Event Note (ED) - Evaluation Sepsis Screening Result: No Definite Risk - Focused Exam Vital Signs: Vital Signs Temp Pulse Resp BP Pulse Ox 11/20/20 22:42 36.4 C 98 18 115/69 98 - My Orders Last 24 Hours: My Active Orders 11/20/20 23:51 DME for Discharge [COMM] Stat - Assessment/Plan Last 24 Hours: My Active Orders 11/20/20 23:51 DME for Discharge [COMM] Stat
--- NOTE | 2020-11-20 23:23 | CR ---
Indication: Injury with left lateral pain Technique: Three views Comparison: None Findings: Bones: Alignment is normal. No fractures or bone lesions. Joint spaces: Unremarkable. Soft tissues: Unremarkable. Dictated by Fidencio Rodriguez MD @ 11/20/2020 11:21:[address] Fidencio Rodriguez @ Nov 20 2020 11:21PM
[2020-11-20] MEDS ORDERED: Ketorolac 30 MG/ML SDV IM ONE (23:37)
== END 2020-11-21 00:26 | disposition home or self-care (01) ==
LOC: MW.ED 21:05
DX: M23.92 Unspecified internal derangement of left knee (principal); S89.82XA Other specified injuries of left lower leg, initial encounter; Z88.5 Allergy status to narcotic agent; X50.9XXA Other and unspecified overexertion or strenuous movements or postures, initial encounter; Y93.66 Activity, soccer
CPT/HCPCS: 73562-26-LT; 73562-LT; 96372; 99283; 99283-25; J1885